=== PATIENT | male | born 1955 | race Caucasian/White ===

== ENCOUNTER 2023-04-04 14:40 | Emergency (ER) | payer OTHER, SELFPAY ==
[2023-04-04 14:53] VITALS: BP 174/93; PULSE 85; RESP 19; TEMP 36.6; O2SAT 94; BMI 39.7
[2023-04-04 17:41] LABS: Influenza A PCR POSITIVE (Negative); Influenza B PCR NEGATIVE (Negative); Resp Syncy Virus RNA Qual PCR NEGATIVE (Negative); SARS COV2 PCR INHOUSE NEGATIVE (Negative)
--- NOTE | 2023-04-04 18:22 | ED.URI ---
HPI - URI/Sore Throat General Chief Complaint: Upper Respiratory Symptoms Stated Complaint: Sinus infection Time Seen by Provider: 04/04/23 18:21 Source: patient, RN notes reviewed and old records reviewed Mode of arrival: ambulatory History of Present Illness HPI Narrative: 67-year-old male with no significant past medical history presenting to the ED complaining of sinus congestion, rhinorrhea, myalgias/body aches x4 days. Also reports dry cough. Admits taking the past few days off of work. Denies known fever, CP/SOB, recent travel, sick contacts, pedal edema, sore throat MD elicited complaint: cough and rhinorrhea Related Data Previous Rx's Medication Instructions Recorded oseltamivir 75 mg capsule (Tamiflu) 75 mg PO Q12H 5 days #10 caps 04/04/23 Allergies Allergy/AdvReac Type Severity Reaction Status Date / Time No Known Allergies Allergy Verified 04/04/23 14:53 [No Known Allergies*] Review of Systems Review of Systems: Constitutional: No Fever, No Chills, +fatigue ENT/Mouth: No Ear Pain, + Nasal Congestion, No Sinus Pain, No Hoarseness, No sore throat, + Rhinorrhea, No Swallowing Difficulty Cardiovascular: No Chest Pain, No SOB Respiratory: + Cough, No Sputum, No Wheezing Gastrointestinal: No Nausea, No Vomiting, No Abdominal pain Musculoskeletal: No joint pain, + Myalgias, No Joint Swelling Skin: No Skin Lesions, No rash Neuro: No Weakness Yes all other systems are reviewed and are negative Constitutional: Constitutional: Reports as per [facility] Past Medical History Attestation statement: The following information was validated with the patient. Source: old records reviewed Social History Social History Advance Directives: No Advance Directives Information Provided: No Physical Exam Vital Signs: Vital Signs: Last Vital Signs Temp 98 F 04/04/23 14:53 Pulse 85 04/04/23 14:53 Resp 19 04/04/23 14:53 BP 174/93 H 04/04/23 14:53 Pulse Ox 94 04/04/23 14:53 O2 Del Method Room Air 04/04/23 14:53 BMI result Body Mass Index 39.7 Const: General: cooperative, healthy appearing and no acute distress Orientation/consciousness: patient oriented x3 Limitations: no limitations HEENT: Head: Yes normal to inspection and Yes atraumatic Ears: hearing grossly normal bilaterally, external ears normal, TM's normal bilaterally and mastoids normal General nose exam: Normal external nose present Face and sinus: Yes normal facial exam Mouth: Normal oral and palatal mucosa present Throat: Yes posterior oropharynx normal, Yes tonsils normal, Yes uvula midline, No peritonsillar mass and No uvula laterally displaced Eyes: General: appearance normal, both eyes and all related structures EOM: EOMs intact bilaterally Neck: Neck: Yes normal visual inspection and Yes no meningeal signs Resp: Effort & Inspection: normal respiratory effort, no respiratory distress and no stridor Auscultation: clear to auscultation bilaterally, no crackles and no wheezes Cardio: Rate: regular rate Heart sounds: S1 normal heart sound present and S2 normal heart sound present GI: Inspection: Yes normal to inspection Palpation (GI): Soft to palpation, nontender, no guarding and not rigid Skin: Rashes: no rashes Wounds: no wounds Neuro: General: patient oriented x3, tone normal and no meningeal signs Cranial nerves: Yes CN's II-XII intact bilaterally Gait exam (Neuro): Normal gait present Extrem: General: Yes normal to inspection Course Course Course Narrative: -influenza a positive Results discussed with patient including worrisome signs and symptoms and strict return precautions, and when to return to the emergency department. They verbalized understanding and feel safe for discharge at this time. Medical Decision Making Medical Decision Making [facility] Narrative: 67-year-old male with no significant past medical history presenting to the ED complaining of sinus congestion, rhinorrhea, myalgias/body aches x4 days. On exam vital signs stable, NAD, nontoxic appearing, exam otherwise nonfocal. Patient requesting discharge. Concern for viral illness. Lower suspicion for pneumonia/bronchitis or ACS Plan: Viral testing Please refer to course for remaining clinical decision making, interpretation of labs/imaging results, and discussions with consultants and/or family members. Differential Diagnosis Differential Diagnoses: The differential diagnosis associated with the presentation includes As above Lab Data [facility] [place] Lab Attestation statement: I reviewed the patient's lab results. Labs: Lab Results 04/04/23 Range/Units 16:56 Influenza Type A (PCR) POSITIVE A (Negative) Influenza Type B (PCR) NEGATIVE (Negative) RSV RNA Qual (PCR) NEGATIVE (Negative) SARS-CoV-2 RNA (RT-PCR) NEGATIVE (Negative) Independent Historian Clinical information obtained from an independent historian. History obtained from or confirmed by: Other (Son) External Record Review External record reviewed: Inpatient record, Office record, Outpatient record, Prior outpatient labs, Prior outpatient radiology, Primary care record and Outside ED record Tests considered The following testing was considered but not selected: As above Discharge Plan Discharge Clinical Impression: Influenza Patient Disposition: Home, Self-Care Instructions: Influenza (DC) Additional Instructions: You have the flu ML fluids in antiviral medication, take as prescribed. No antibiotics are indicated at this time Make sure you are staying hydrated. Drink plenty of fluids. Rest Alternate Tylenol and Motrin at home as needed for body aches and fever Follow-up with your doctor. If symptoms persist or worsen return to the emergency department *If you are a child & not tolerating liquid or urinating for more than 6 hours, or fevers are uncontrolled with medications at home, return to the emergency department* Prescriptions: New oseltamivir [Tamiflu] 75 mg capsule 75 mg PO Q12H 5 Days Qty: 10 0RF Referrals: Radha Torres MD [Primary Care Provider] - Stand Alone Forms: Work/School Release
== END 2023-04-04 19:02 | disposition home or self-care (01) ==
PROVIDERS: Emergency Provider Emergency Medicine; PCP Internal Medicine
DX: J10.1 Influenza due to other identified influenza virus with other respiratory manifestations (principal); R09.81 Nasal congestion; M79.10 Myalgia, unspecified site; R05.9 Cough, unspecified; Z20.828 Contact with and (suspected) exposure to other viral communicable diseases; Z20.822 Contact with and (suspected) exposure to COVID-19
CPT/HCPCS: 0241U; 99282; 99283

== ENCOUNTER 2023-07-27 13:30 | Emergency (ER) | payer OTHER, SELFPAY ==
[2023-07-27 14:52] VITALS: BP 146/93; PULSE 75; RESP 18; TEMP 36.4; O2SAT 95; BMI 40.8
--- NOTE | 2023-07-27 14:53 | ED_ITS ---
HPI - General Adult General Chief complaint: General Medical Stated complaint: Medication refill Time Seen by Provider: 07/27/23 15:22 Source: patient and family Mode of arrival: ambulatory Limitations: no limitations History of Present Illness HPI narrative: 67-year-old male with history of hypertension, hyperlipidemia, OK, obesity who presents to the ER for medication refills. He states he went to the [facility] for medication refills, he was told they did not take his insurance needs come to the ER. He states he has 2 days left of his medications including atorvastatin, metoprolol, amlodipine, aspirin and clopidogrel. He has been taking these medications at the same dose for several years. His primary care doctor dropped him because he has not been in several years. His new PCP appointment is in September. He denies any physical symptoms including chest pain, shortness for breath, abdominal pain or headaches. MD complaint: Medication refill Related Data Previous Rx's ?Medication ?Instructions ?Recorded oseltamivir 75 mg capsule (Tamiflu) 75 mg PO Q12H 5 days #10 caps 04/04/23 amlodipine 5 mg tablet 5 mg PO DAILY #90 tabs 07/27/23 aspirin 81 mg tablet,delayed 81 mg PO DAILY #90 tabs 07/27/23 release (Adult Aspirin Regimen) atorvastatin 80 mg tablet 80 mg PO DAILY #90 tabs 07/27/23 clopidogrel 75 mg tablet (Plavix) 75 mg PO DAILY #90 tabs 07/27/23 metoprolol succinate 25 mg 25 mg PO DAILY #90 tabs 07/27/23 tablet,extended release 24 hr Allergies Allergy/AdvReac Type Severity Reaction Status Date / Time No Known Allergies Allergy Verified 07/27/23 14:56 [No Known Allergies*] Review of Systems Review of Systems: Yes all other systems are reviewed and are negative [facility] Social History Social History Advance Directives: No Advance Directives Information Provided: No Physical Exam ED Vital Signs: Vital Signs - 24 hr 07/27/23 14:52 Temperature 97.6 F Pulse Rate 75 Respiratory Rate 18 Blood Pressure 146/93 H Pulse Oximetry 95 Oxygen Delivery Method Room Air BMI result Body Mass Index 40.8 Appearance: Alert. Oriented X3. No acute distress. HEENT: normal external inspection Neck: Normal inspection. CVS: Normal heart rate and rhythm. Pulses normal. Respiratory: No respiratory distress. Breath sounds normal. Abdomen: Obese, Soft and nontender. +BS x4 Skin: Skin warm and dry. Normal skin color. Normal skin turgor. No rashes. Extremities: No lower extremity edema. No joint swelling. Neuro/psych: Oriented X 3. grossly normal, nonfocal, slow but steady gait Course Course Course Narrative: RME:?67 yo male hx of HTN, HDL here requesting refills of 5 different medications. meds includes metoprolol, admlodipine, atorvastatin, aspirin, plaxix > when asked why he is on AC, he states he does not know. Stilll has a few doses of these medications. Daughter has been trying to get him into a PCP however there is no openings until September. He has not seen his previous PCP since 2019 however continued to fill these. denies any physical complaints. basic labs, UA ordered. Full HPI, ROS and PE to be performed by the primary ED provider. Medical Decision Making Medical Decision Making MDM Narrative: 67-year-old male with a history of HTN, HLD, obesity and OK who presents to the ER for medication refills. He presents with 5 prescriptions need refilling including antihypertensives, statin and antiplatelet. He is slightly hypertensive on arrival. He has been compliant with his medication for years. His PCP appointment is in September. Spent time discussing importance of outpatient follow-up and patient expressed understanding. He has appointment in September. Refusing blood work today and will get it done in september. will send Rx for 3 month supply to his pharmacy. stable for d/c home Differential Diagnosis Differential Diagnoses: The differential diagnosis associated with the presentation includes Independent Historian Clinical information obtained from an independent historian. History obtained from or confirmed by: Other (adult daughter at bedside) External Record Review External record reviewed: Outpatient record and Prior outpatient labs Tests considered The following testing was considered but not selected: considered basic labs and urinalysis however patient refused Prescription Management I considered prescription management with: Other ( antihypertensive, antiplatelet and statin) Chronic Conditions Patient?s care impacted by: Hypertension Critical Care Time Critical Care Time Critical Care Time: No Discharge Plan Discharge Clinical Impression: Hypertension, Hyperlipidemia Patient Disposition: Home, Self-Care Instructions: Chronic Hypertension (DC) Additional Instructions: Take prescribed medications as directed. Follow-up with your primary care doctor in September as scheduled. If you develop new or worsening symptoms call 911 or come back to the ER for further evaluation. Prescriptions: New metoprolol succinate 25 mg tablet extended release 24 hr 25 mg PO DAILY Qty: 90 0RF aspirin [Adult Aspirin Regimen] 81 mg tablet,delayed release (DR/EC) 81 mg PO DAILY Qty: 90 0RF clopidogrel [Plavix] 75 mg tablet 75 mg PO DAILY Qty: 90 0RF amlodipine 5 mg tablet 5 mg PO DAILY Qty: 90 0RF atorvastatin 80 mg tablet 80 mg PO DAILY Qty: 90 0RF No Action oseltamivir [Tamiflu] 75 mg capsule 75 mg PO Q12H 5 Days Qty: 10 0RF Referrals: Radha Torres MD [Physician] - Print Language: Frisian
--- NOTE | 2023-07-27 15:32 | PC.NURSE ---
declined blood draw- anna roca aware- my blood is good, i want to go back to work.
[2023-07-27 16:57] VITALS: BP 146/93; PULSE 75; RESP 18; TEMP 36.4; O2SAT 95
== END 2023-07-27 16:00 | disposition home or self-care (01) ==
LOC: HO.ED 15:42
PROVIDERS: Emergency Provider Emergency Medicine
DX: I10 Essential (primary) hypertension (principal); E78.5 Hyperlipidemia, unspecified; I25.2 Old myocardial infarction; E66.9 Obesity, unspecified; Z76.0 Encounter for issue of repeat prescription; Z68.41 Body mass index [BMI] 40.0-44.9, adult
CPT/HCPCS: 99283; 99284

== ENCOUNTER 2024-01-06 08:02 | Outpatient (REF) | payer OTHER, SELFPAY ==
[2024-01-06 15:02] LABS: MANUAL DIFF FLAG NO
[2024-01-06 15:11] LABS: Basophils Absolute Auto 0.1 X10*3/uL (0.0-0.2); Basophils Percent Auto 0.8 % (0-2); Eosinophils Absolute Auto 0.3 X10*3/uL (0.0-0.4); Eosinophils Percent Auto 2.9 % (0-4); Hematocrit 50.8 % (42.0-52.0); Hemoglobin 17.3 g/dl (14.0-18.0); Imm Gran Abs Auto 0.04 X10*3/uL (0.00-0.03); Imm Gran Pct Auto 0.4 % (0.0-0.4); Lymphocytes Absolute Auto 2.6 X10*3/uL (1.2-4.9); Lymphocytes Percent Auto 28.1 % (20-40); Mean Corpuscular HGB Conc 34.1 g/dl (31.0-36.0); Mean Corpuscular Hemoglobin 31.1 pg (27.0-33.0); Mean Corpuscular Volume 91.2 fL (80.0-98.0); Mean Platelet Volume 9.4 fL (9.4-12.4); Monocytes Percent Auto 11.2 % (2-11); Neutrophils Absolute Auto 5.2 x10*3/uL (2.0-8.3); Neutrophils Percent Auto 56.6 % (45-73); Platelet Count 299 X10*3/uL (160-400); Red Blood Count 5.57 X10*6/uL (4.60-5.80); Red Cell Distribution Width 12.6 % (11.0-16.0); White Blood Count 9.1 X10*3/uL (4.8-10.8)
[2024-01-06 15:17] LABS: Appearance Urine Clear; Color Urine Dark Yellow; Glucose Urine UA Negative (Negative); Leukocyte Esterase Urine Negative (Negative); Nitrite Urine Negative (Negative); PH 7.5 (5.0-9.0); Specific Gravity - Urine 1.025 (1.005-1.025); UMIC TRIGGER UACC YES; Urine Blood Negative (Negative); Urine Ketones Negative (Negative); Urine Protein 30 (1+) mg/dL (Neg-Trace)
[2024-01-06 15:22] LABS: Bacteria Urine None Seen (None Seen); Hyaline Casts Urine 0-2 /LPF (0-2); RBC Urine 0-2 /HPF (0-2); Squamous Epithelial Cell Urine 0-2 /HPF (0-2); WBC Urine 0-5 /HPF (0-5)
[2024-01-06 16:18] LABS: Alanine Aminotransferase 56 U/L (0-40); Albumin Level 4.4 g/dL (3.5-5.0); Alkaline Phosphatase 67 U/L (39-117); Anion Gap 14 (12-20); Aspartate Amino Transferase 41 U/L (5-37); Bilirubin Total 0.8 mg/dL (0.0-1.0); Blood Urea Nitrogen 17 mg/dL (9-16); Calcium 9.8 mg/dL (8.4-10.2); Carbon Dioxide 28 mmol/L (22-29); Chloride 103 mmol/L (96-108); Cholesterol 126 mg/dL (<200); Estimated Glomerular Filt Rate > 60; Glucose Random 81 mg/dL (60-115); HDL Cholesterol 33 mg/dL (>40); LDL Cholesterol Calculated 52 mg/dL (<100); Potassium 4.2 mmol/L (3.3-5.1); Sodium 141 mmol/L (135-145); Total Protein 7.6 g/dL (6.5-8.0); Triglycerides 206 mg/dL (<150)
[2024-01-06 16:25] LABS: TSH reflex Free T4 1.07 uIU/mL (0.32-4.0)
== END 2024-01-06 08:03 | disposition home or self-care (01) ==
LOC: HO.CHCLDS 08:02
PROVIDERS: Visit Provider Family Medicine
DX: E66.01 Morbid (severe) obesity due to excess calories (principal); I10 Essential (primary) hypertension; I21.4 Non-ST elevation (NSTEMI) myocardial infarction; Z68.41 Body mass index [BMI] 40.0-44.9, adult
CPT/HCPCS: 36415; 80053; 80061; 81001; 84443; 85025

== ENCOUNTER 2024-11-24 09:33 | Outpatient (REF) | payer OTHER, SELFPAY ==
--- OUTSIDE RECORDS SUMMARY | 2024-11-24 09:36 | XMS_ITS | Clinical Summary ---
Author Organization [employer] Address [address] [place] [address] Care Team Providers Care Hardboard Panel Printer Name Role Phone Yissel Landin MD Primary Care Provider [phone] Allergies No known active allergies Medications Blood Pressure kit 1 Units Once per day. 1 kit 10/07/19 24 Active Aspirin Adult Low Strength 81 MG EC tabletIndication s:Non-ST elevation (NSTEMI) myocardial infarction (CMS/HCC) TAKE ONE TABLET EVERY DAY 90 tablet 10/20/19 25 Active naproxen (Naprosyn) 500 MG tablet Take 1 tablet (500 mg) by mouth if needed in the morning and at bedtime for moderate pain. 60 tablet 11/25/19 25 Active amLODIPine (Norvasc) 10 MG tablet Take 1 tablet (10 mg) by mouth Once per day. 90 tablet 1 11/25/19 25 Active atorvastatin (Lipitor) 80 MG tabletIndication s:Non-ST elevation (NSTEMI) myocardial infarction (CMS/HCC),Essent ial (primary) hypertension Take 1 tablet (80 mg) by mouth Once per day. 90 tablet 1 11/25/19 25 Active metoprolol succinate XL (Toprol-XL) 25 MG 24 hr tabletIndication s:Non-ST elevation (NSTEMI) myocardial infarction (CMS/HCC) Take 1 tablet (25 mg) by mouth Once per day. Do not crush or chew. 90 tablet 1 11/25/19 25 Active metoprolol succinate XL (Toprol-XL) 25 MG 24 hr tabletIndication s:Non-ST elevation (NSTEMI) myocardial infarction (CMS/HCC) TAKE ONE TABLET EVERY DAY. DO NOT BREAK, CRUSH, DISSOLVE OR CHEW 90 tablet 07/07/06 24 025 Discontinued(Re order (will not trigger notification to Pharmacy)) amLODIPine (Norvasc) 5 MG tabletIndication s:Essential (primary) hypertension TAKE ONE TABLET EVERY DAY 90 tablet 10/20/19 25 025 Discontinued(Th erapy completed) atorvastatin (Lipitor) 80 MG tabletIndication s:Non-ST elevation (NSTEMI) myocardial infarction (CMS/HCC),Essent ial (primary) hypertension TAKE ONE TABLET EVERY DAY 90 tablet 10/20/19 025 Discontinued(Re order (will not trigger notification to Pharmacy)) Active Problems Problem Noted Date Diagnosed Date Non-ST elevation (NSTEMI) myocardial infarction 10/07/2023 Assessment & Plan (10/07/2023 2:21 PM EDT): Pt has not seen his pairer substandard and doesn't wish to f/u with one. Essential (primary) hypertension 10/07/2023 Assessment & Plan (01/14/2024 3:48 PM EDT): Pts BP was re-taken at visit and it was normal. Advised pt to keep a log of BP readings and to bring them to the next f/u visit in 6 months Assessment & Plan (10/07/2023 1:49 PM EDT): Pt's BP was 144/84 at the time of the visit. - BP kit was ordered. -Advised pt to keep a log of BP readings and to bring them to the next f/u visit in 4 months Hyperlipidemia 10/05/2023 Hypertension 10/05/2023 Influenza 10/05/2023 Encounters Date Type Department Care Team Description 11/24/2024 9:00 AM EDT Office Visit [facility] [address] [place] [address] Yissel Landin MD Resistant hypertension (Primary Dx); Non-ST elevation (NSTEMI) myocardial infarction (CMS/HCC); Essential (primary) hypertension; Encounter for health-related screening 11/24/2024 Travel 11/21/2024 Telephone [facility] [address] [place] [address] Yissel Landin MD CHART PREP 10/30/2024 Telephone [facility] [address] [place] [address] Yissel Landin MD Med Refill 10/19/2024 Telephone [facility] [address] [place] [address] Yissel Landin MD Transition Of Care (Tcm) 10/19/2024 Telephone [facility] [address] [place] [address] Yissel Landin MD 10/19/2024 Refill [facility] [address] [place] [address] Yissel Landin MD Non-ST elevation (NSTEMI) myocardial infarction (CMS/HCC); Essential (primary) hypertension from Last 3 Months Immunizations Immunization Administration Dates Next Due Pneumococcal Conjugate PCV 20 10/07/2023 Tdap 10/07/2023 Family History Medical History Relation Name Comments CKD Son Relation Name Status Comments Son Social History Tobacco Use Types Packs/Day Years Used Date Smoking Tobacco: Every Day Cigarettes 2 51.6 Started: 04/19/1973 Tobacco Cessation:Ready to Q uit: Not Asked; Counseling Given: Not Answered Alcohol Use Standard Drinks/Week Comments Yes 0 (1 standard drink = 0.6 oz pur e alcohol) Depression Answer Date Recorded Patient Health Questionnaire-9 Score 1 11/24/2024 Patient Health Questionnaire-9 Score 1 11/24/2024 Last PHQ-9: Questionnaire Data Not on file 0 11/24/2024 Housing Stability Answer Date Recorded What is your housing situation today? I have mila milan 11/24/[address] you li ve. Do you have problems with any of the following? None of the above 11/24/2024 Food Insecurity Answer Date Recorded Within the past 12 months, y ou worried that your food would run out before you got money to buy more: Never True 11/24/2024 Within the past 12 months,th e food you bought just didn't last and you didn't have enough money to get more: Never True 11/2024 Transportation Answer Date Recorded In the past 12 months, has l ack of transportation kept you from medical appts, meetings, work or from getting things needed for daily living? No 11/24/2024 Utilities Answer Date Recorded In the past 12 months, has t he electric, gas, oil or water company threatened to shut off services in your home? 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 on file Not on file Last Filed Vital Signs Vital Sign Reading Time Taken Comments Blood Pressure 140/86 11/24/2024 8:59 AM EDT Pulse 78 11/24/2024 8:59 AM EDT Temperature 37.1 C (98.8 F) 11/24/2024 8:59 AM EDT Respiratory Rate 18 11/24/2024 8:59 AM EDT Oxygen Saturation 97% 11/24/2024 8:59 AM EDT Inhaled Oxygen Concentration - - Weight 131 kg (289 lb 6.4 oz) 11/24/2024 8:59 AM EDT Height 177.8 cm (5' 10 ) 11/24/2024 8:59 AM EDT Body Mass Index 41.52 11/24/2024 8:59 AM EDT Plan of Treatment Health Maintenance Due Date Last Done Comments CT Colonography 1953 Colonoscopy 1953 FIT DNA/Cologuard 1953 FIT 1953 FOBT 1955 Sigmoidoscopy 1955 Hepatitis C Screening 12/23/1971 RSV Patients and Patients Aged 60 years or older (1 - Risk 60-74 years 1-dose series) 2013 COVID-19 Vaccine ( season) 2023 10/13/2021, 04/24/2021, 08/19/2020, Additional history exists Influenza Vaccine (#1) 2024 Alcohol/Substance Use Screening 11/24/2025 11/24/2024 Colorectal Cancer Screening 11/24/2025 Postponed from 1955 (Patient Refused) Depression Screening 11/24/2025 11/24/2024, 11/25/19 Lung Cancer Screening 11/24/2025 Postpo asia from 12/23/2003 (Patient Refused) SDOH Screening 11/24/2025 11/24/2024 Tobacco Screening 11/24/2025 11/24/2024 Zoster Vaccines (1 of 2) 11/24/2025 Pos tponed from 12/23/2003 (Patient Refused) Lipid Panel 01/05/2029 01/06/2024 DTaP/Tdap/Td Vaccines (2 - Td or Tdap) 10/06/2033 10/07/2023 Pneumococcal Vaccine: 50+ Years Completed 10/07/2023 HIB Vaccines Aged Out No longer eligi ble based on patient's age to complete this topic HPV Vaccines Aged Out No longer eligi ble based on patient's age to complete this topic Hepatitis A Vaccines Aged Out No long er eligible based on patient's age to complete this topic Hepatitis B Vaccines Aged Out No long er eligible based on patient's age to complete this topic IPV Vaccines Aged Out No longer eligi ble based on patient's age to complete this topic Meningococcal B Vaccine Aged Out No l onger eligible based on patient's age to complete this topic Meningococcal Vaccine Aged Out No long segundo eligible based on patient's age to complete this topic RSV under 20 months Aged Out No longe r eligible based on patient's age to complete this topic Rotavirus Vaccines Aged Out No longer eligible based on patient's age to complete this topic Procedures Procedure Name Priority Date/Time Associated Diagnosis Comments LIPID PANEL, STANDARD Routine 01/06/2024 8:04 AM EDT Class 3 severe obesity with serious comorbidity and body mass index (BMI) of 40.0 to 44.9 in adult, unspecified obesity type (CMS/HCC) from Last 3 Months or Most Recently Relevant to Health Maintenance Results * (ABNORMAL) Lipid Panel, Standard (01/06/2024 8:04 AM EDT) Triglycerides 206(H) <150 mg/dL [facility] Comment:Desirable Triglyceri de: less than 150 mg/dLBorderline High Triglyceride 150-199 mg/dLHigh Triglyceride: 200-499 mg/dLVery High Triglyceride: greater than or equal to 5OO mg/dL Cholesterol 126 <200 mg/dL [facility] Comment:Desirable Cholestero l: less than 200 mg/dLBorderline High Cholesterol: 200-239 mg/dLHigh Cholesterol: greater than 239 mg/dL LDL Cholesterol Calculated 52 <100 mg/dL [facility] Comment:Desirable LDL: less than 100 mg/dLNear Optimal/Above Optimal LDL: 110- 129 mg/dLBorderline High LDL: 130-159 mg/dLHigh LDL: 160-189 mg/dLVery High LDL: greater than or equal to 190 mg/dL HDL Cholesterol 33(L) >40 mg/dL [facility] Comment:Desirable HDL: great er than 40 mg/dL Note: This HDL assay may give artificially low results in patients with liver disease. Blood Venous blood specimen / Unknown 01/06/2024 8:04 AM EDT 01/06/2024 2:56 PM EDT us Yissel Landin MD LAB BLOOD ORDERABLES Final Re sult [facility] [address] [place] [phone] from Last 3 Months or Most Recently Relevant to Health Maintenance Insurance [facility] , [address] [place] [address] [address] Care Teams Hardboard Panel Printer Relationship Specialty Start Date End Date Yissel Landin MD [address] [place] [id number] PCP - General Family Medicine 10/07/23
[2024-11-24 14:46] LABS: Appearance Urine Clear; Glucose Urine UA Negative (Negative); PH 7.0 (5.0-9.0); Specific Gravity - Urine 1.015 (1.005-1.025)
[2024-11-24 15:00] LABS: MANUAL DIFF FLAG NO
[2024-11-24 15:07] LABS: Hematocrit 48.6 % (42.0-52.0); Hemoglobin 16.4 g/dl (14.0-18.0); Imm Gran Abs Auto 0.04 X10*3/uL (0.00-0.03); Imm Gran Pct Auto 0.4 % (0.0-0.4); Lymphocytes Absolute Auto 2.0 X10*3/uL (1.2-4.9); Mean Corpuscular HGB Conc 33.7 g/dl (31.0-36.0); Mean Corpuscular Hemoglobin 30.6 pg (27.0-33.0); Mean Corpuscular Volume 90.7 fL (80.0-98.0); NRBC Abs Auto 0.000 X10*3/uL (0.0-0.012); NRBC Pct Auto 0.0 /100WBC (0.0-0.2); Platelet Count 284 X10*3/uL (160-400); Red Blood Count 5.36 X10*6/uL (4.60-5.80); White Blood Count 9.5 X10*3/uL (4.8-10.8)
[2024-11-24 15:39] LABS: Alanine Aminotransferase 57 U/L (0-40); Albumin Level 4.6 g/dL (3.5-5.0); Alkaline Phosphatase 79 U/L (39-117); Anion Gap 12 (12-20); Aspartate Amino Transferase 54 U/L (5-37); Blood Urea Nitrogen 11 mg/dL (9-16); Calcium 9.3 mg/dL (8.4-10.2); Carbon Dioxide 25 mmol/L (22-29); Chloride 107 mmol/L (96-108); Cholesterol 113 mg/dL (<200); Estimated Glomerular Filt Rate > 60; HDL Cholesterol 33 mg/dL (>40); Potassium 4.0 mmol/L (3.3-5.1); Sodium 140 mmol/L (135-145); Total Protein 7.2 g/dL (6.5-8.0); Triglycerides 150 mg/dL (<150)
[2024-11-27 08:44] LABS: ~HepC Num1 0.16 S/CO (0.00-0.79); ~Hepatitis C Antibody Nonreactive (Nonreactive)
== END 2024-11-24 09:34 | disposition home or self-care (01) ==
LOC: HO.CHCLDS 09:33
PROVIDERS: Visit Provider Family Medicine
DX: Z11.59 Encounter for screening for other viral diseases (principal); Z13.89 Encounter for screening for other disorder; I1A.0 Resistant hypertension
CPT/HCPCS: 36415; 80053; 80061; 81003; 85025; 86803

== ENCOUNTER 2025-02-06 07:42 | Outpatient (REF) | payer OTHER, SELFPAY ==
--- NOTE | ~2025-02-06 | US_ITS ---
EXAMINATION: US COMPLETE ABDOMEN WITH LIVER ELASTOGRAPHY CLINICAL INFORMATION: Mild transaminitis COMPARISON: None available. TECHNIQUE: Real-time imaging of the abdominal viscera. Noninvasive ultrasound liver fibrosis assessment is performed using Analia ElastPQ point quantification shear wave elastography (pSWE) with a C5-2 MHz transducer. Multiple elastography samples are obtained. FINDINGS: PANCREAS: Not well-visualized due to overlying bowel gas. ABDOMINAL AORTA: Not well-visualized due to bowel gas. INFERIOR VENA CAVA: Visualized portions are normal. LIVER: The liver demonstrates normal size, contour and echogenicity. No focal lesion or intrahepatic biliary duct dilatation. The right lobe measures 18.1 cm in length. The left lobe measures 8.7 cm in length. Portal flow is normal/hepatopedal Shear wave liver elastography median stiffness is 1.27 m/s (reference: normal median stiffness is 1.3 m/s or less). IQR/median stiffness to assess sampling precision is 0.13 (reference: good quality data set is IQR/median stiffness of 0.15 or less). GALLBLADDER: The gallbladder is physiologically distended. Question small gallbladder wall polyp measuring 3 x 4 x 3 mm versus sludge. No gallstones. No gallbladder wall thickening or edema. The patient is not tender over the gallbladder. COMMON BILE DUCT: Not well-visualized. The visualized common bile duct is upper normal caliber measuring 0.8 cm in diameter. RIGHT KIDNEY: Nephrectomy LEFT KIDNEY: No hydronephrosis. No renal calculi. Small 1.5 x 1.1 x 0.8 cm cyst exophytic to the lateral midpole. Compensatory hypertrophy of the left kidney. The kidney measures 16 cm in maximum dimension. SPLEEN: Unremarkable. The spleen measures 10.6 cm in maximum dimension. FREE FLUID: None seen. US/US abdomen comp w elastography IMPRESSION: 1. Impression: Normal liver. Question small polyp versus sludge in the gallbladder. Upper normal size common bile duct. Limited visualization of the pancreas and aorta. Absent right kidney. Compensatory hypertrophy of the left kidney and small left renal cyst. 2. Liver elastography: Normal liver stiffness. REFERENCE: Society of Radiologists in Ultrasound Liver Stiffness Thresholds (2020): LIVER STIFFNESS THRESHOLDS: *Liver Stiffness equal or less than 1.3 m/s: High probability of being normal. *Liver Stiffness less than 1.7 m/s: In the absence of other known clinical signs, rules out compensated advanced chronic liver disease. *Liver Stiffness 1.7-2.1 m/s: Suggestive of compensated advanced chronic liver disease but need further test for confirmation. *Liver Stiffness over 2.1 m/s: Rules in compensated advanced chronic liver disease. *Liver Stiffness over 2.4 m/s: Suggestive of clinically significant portal hypertension. QUALITY OF DATA SET: *IQR/Median value equal or less than 0.15 implies a quality data set. *IQR/Median value over 0.15 implies a poor quality data set. SIGNIFICANT CHANGE FROM PRIOR EXAM: Significant change if liver stiffness measurement is 10% or greater from prior exam. OTHER CONSIDERATIONS: The stage of liver fibrosis may be overestimated in the setting of acute hepatitis, liver inflammation, elevated liver function tests, hepatic vascular congestion, obstructive cholestasis, non-fasting state, and infiltrative diseases such as amyloidosis and lymphoma. In some patients with NAFLD, the liver stiffness thresholds for compensated advanced chronic liver disease may be lower. In causes other than viral hepatitis and NAFLD, liver stiffness thresholds are not well established. Electronically signed by: Camila Harper MD 02/06/2025 09:52 AM EDT
--- OUTSIDE RECORDS SUMMARY | 2025-02-06 07:44 | XMS_ITS | Encounter Summary ---
Author Organization [employer] Address [address] [facility] [address] [place] [address] Care Team Providers Care Market Editor Name Role Phone Yissel Landin MD Primary Care Provider [phone] Reason for Visit * Reason Comments Med Refill Encounter Details Date Type Department Care Team ([facility] st Contact Info) Description 02/05/2025 Refill [facility] [address] [place], [place] [phone] Yissel Landin MD [address] [place] [address] Non-ST elevation (NSTEMI) myocardial infarction (HCC) Social History Tobacco Use Types Packs/Day Years Used Date Smoking Tobacco: Every Day Cigarettes 2 51.8 Started: 04/19/1973 Alcohol Use Standard Drinks/Week Comments Yes 0 [...] 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 documented in this encounter Plan of Treatment Upcoming Encounters Date Type Department Care Team (Late st Contact Info) Description 03/02/2025 10:30 AM EST Office Visit [facility] [address] [place] [address] Yissel Landin MD [address] [place] [address] documented as of this encounter Visit Diagnoses Diagnosis Non-ST elevation (NSTEMI) myocardial infarction (HCC) documented in this encounter Additional Health Concerns Assessment Noted Time PHQ-9 Depression Total Score: 1 11/25/19 9:03 AM EDT documented as of this encounter Care Teams Market Editor Relationship Specialty Start Date End Date Yissel Landin MD [address] [place] [address] PCP - General Family Medicine 10/07/23 documented as of this encounter
--- OUTSIDE RECORDS SUMMARY | 2025-02-06 07:44 | XMS_ITS | Encounter Summary ---
Author Organization [employer] Address 75 [facility] 7 [place] [address] Care Team Providers Care Price Changer Name Role Phone Radha Torres MD Primary Care Provider [phone] Yissel Landin MD Primary Care Provider [phone] Reason for Visit * Reason Comments Med Refill Encounter Details Date Type Department Care Team (Late st Contact Info) Description 01/20/2023 Refill [facility] [address] [place], [place] [phone] Radha Torres MD [address] [place], [place] [phone] Non-ST elevation (NSTEMI) myocardial infarction (CMS/HCC); Essential (primary) hypertension Social History Tobacco Use Types Packs/Day Years Used Date Smoking Tobacco: Never Assessed Sex and Gender Information Value Date Recorded Sex Assigned at Male 02/16/2022 10:34 AM EDT Legal Sex Male 10:34 AM EDT Gender Identity Male 10/07/2023 12:55 PM EDT Sexual Orientation Straight 10/07/2023 12 :55 PM EDT documented as of this encounter Plan of Treatment Upcoming Encounters Date Type Department Care Team (Late st Contact Info) Description 03/02/2025 10:30 AM EST Office Visit [facility] MED & PEDS [address] [place], [place] [phone] Yissel Landin MD [address] [place], [place] [phone] documented as of this encounter Visit Diagnoses Diagnosis Non-ST elevation (NSTEMI) myocardial infarction (HCC) Essential (primary) hypertension Unspecified essential hypertension documented in this encounter Care Teams Price Changer Relationship Specialty Start Date End Date Radha Torres MD [address] [place] [phone] PCP - General Internal Medicine 09/28/17 06/23/23 Yissel Landin MD [address] [place] [phone] PCP - General Family Medicine 10/07/23 documented as of this encounter
--- OUTSIDE RECORDS SUMMARY | 2025-02-06 07:44 | XMS_ITS | Encounter Summary ---
Author Organization [employer] Address 75 [facility] 7t [place] [address] Care Team Providers Care Plasterer Rough Name Role Phone Yissel Landin MD Primary Care Provider [phone] Reason for Visit * Reason Comments Med Refill Encounter Details Date Type Department Care Team (Late Contact Info) Description 07/20/2023 Refill [facility] MED & PEDS [address] [place] [address] Yissel Landin MD [address] [place], [place] [phone] Non-ST elevation (NSTEMI) myocardial infarction (CMS/HCC); Essential [...] Description 03/02/2025 10:30 AM EST Office Visit [facility] MED & PEDS [address] [place], [place] [phone] Yissel Landin MD [address] [place], [place] [phone] documented as of this encounter Visit Diagnoses Diagnosis Non-ST elevation (NSTEMI) myocardial infarction (HCC) Essential (primary) hypertension Unspecified essential hypertension documented in this encounter Care Teams Plasterer Rough Relationship Specialty Start Date End Date Yissel Landin MD [address] [place] [address] PCP - General Family Medicine 10/07/23 documented as of this encounter
--- OUTSIDE RECORDS SUMMARY | 2025-02-06 07:44 | XMS_ITS | Clinical Summary ---
Author Organization [employer] Address 75 [facility] [address]t [place] [address] Care Team Providers Care Hog Tender Name Role Phone Yissel Landin MD Primary Care Provider [phone] Allergies No known active allergies Medications Blood Pressure kit 1 Units Once per day. 1 kit 4 Active Aspirin Adult Low Strength 81 MG EC tabletIndications :Non-ST elevation (NSTEMI) myocardial infarction (HCC) TAKE ONE TABLET EVERY DAY 90 tablet 5 Active naproxen (Naprosyn) 500 MG tablet Take 1 tablet (500 mg) by mouth if needed in the morning and at bedtime for moderate pain. 60 tablet 5 Active amLODIPine (Norvasc) 10 MG tablet Take 1 tablet (10 mg) by mouth Once per day. 90 tablet 1 5 Active atorvastatin (Lipitor) 80 MG tabletIndications :Non-ST elevation (NSTEMI) myocardial infarction (HCC),Essential (primary) hypertension Take 1 tablet (80 mg) by mouth Once per day. 90 tablet 1 5 Active metoprolol succinate XL (Toprol-XL) 25 MG 24 hr tabletIndications :Non-ST elevation (NSTEMI) myocardial infarction (HCC) Take 1 tablet (25 mg) by mouth Once per day. Do not crush or chew. 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 [...] in 4 months Hyperlipidemia 10/05/2023 Hypertension 10/05/2023 Assessment & Plan (12/06/2024 9:01 AM EDT): Patient's blood pressure is elevated but not critically high. Current medication regimen is insufficient to control blood pressure adequately. 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 - Reassess in 3 months Influenza 10/05/2023 Encounters Date Type Department Care Team Description 02/05/2025 Telephone [facility] MED & PEDS [address] [place] [address] Yissel Landin MD Med Refill 02/05/2025 Refill [facility] PED[facility] [address] [place] [address] Yissel Landin MD Non-ST elevation (NSTEMI) myocardial infarction (HCC) 12/06/2024 Results Follow-Up [facility] MED & PEDS [address] [place] [address] Yissel Landin MD CBC auto differential, Comprehensive Metabolic Panel, Lipid Panel, Standard, Additional followed-up results: 2 11/24/2024 9:00 AM EDT Office Visit [facility] MED & PEDS [address] [place] [address] Yissel Landin MD Resistant hypertension (Primary Dx); Non-ST elevation (NSTEMI) myocardial infarction (CMS/HCC); Essential (primary) hypertension; Encounter for health-related screening 11/24/2024 Travel 11/21/2024 Telephone 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 MED & PEDS [address] [place] [address] Yissel Landin MD [address] [place] [address] Health Maintenance Due Date Last Done Comments CT Colonography 1953 Colonoscopy 1953 FIT DNA/Cologuard 1953 FIT 1953 FOBT 1953 Sigmoidoscopy 1953 RSV Patients and Patients Aged 60 years or older (1 - Risk 60-74 years 1-dose series) 2013 COVID-19 Vaccine ( season) 2024 10/13/2021, 04/24/2021, 08/19/2020, Additional history exists Influenza Vaccine (#1) 2024 Alcohol/Substance Use Screening 11/24/2025 11/24/2024 Colorectal Cancer Screening 11/24/2025 Postponed from 1955 (Patient Refused) Depression Screening 11/24/2025 11/24/2024, 11/25/19 Lung Cancer Screening 11/24/2025 Postpo asia from 12/23/2003 (Patient Refused) SDOH Screening 11/24/2025 11/24/2024 Zoster Vaccines (1 of 2) 11/24/2025 Pos tponed from 12/23/2003 (Patient Refused) Tobacco Screening 12/06/2025 12/06/2024 Lipid Panel 11/24/2029 11/24/2024, 01/06/2024 DTaP/Tdap/Td Vaccines (2 - Td or Tdap) 10/06/2033 10/07/2023 Pneumococcal Vaccine: 50+ Years Completed 10/07/2023 Hepatitis C Screening Completed 11/24/2024 HIB Vaccines Aged Out No longer eligi [...] Procedure Name Priority Date/Time Associated Diagnosis Comments URINALYSIS WITH REFLEX MICROSCOPIC Routine 11/24/2024 9:40 AM EDT Resistant hypertension HEPATITIS C AB W/REFL TO HCV RNA, QN, PCR Routine 11/24/2024 9:35 AM EDT Encounter for health-related screening LIPID PANEL, STANDARD Routine 11/24/2024 9:35 AM EDT Resistant hypertension COMPREHENSIVE METABOLIC PANEL Routine 11/24/2024 9:35 AM EDT Resistant hypertension CBC WITH AUTO DIFFERENTIAL Routine 11/24/2024 9:35 AM EDT Resistant hypertension from Last 3 Months Results * Urinalysis with reflex microscopic (11/24/2024 9:40 AM EDT) Color Urine Yellow [facility] Appearance Urine Clear [facility] PH 7.0 5.0 - 9.0 [facility] Glucose Urine UA Negative Negative mg/dL [facility] Urine Blood Negative Negative [facility] Specific [place] - Urine 1.015 1.005 - 1.025 [facility] Urine Protein Trace Neg-Trace mg/dL [facility] Urine Ketones Negative Negative mg/dL [facility] Nitrite Urine Negative Negative [facility] Leukocyte Esterase Urine Negative Negative [facility] Urine (Urine, Random) 11/24/2024 9:40 AM EDT 11/24/2024 2:33 PM EDT Narrative [facility] - 11/24/2024 2:49 PM EDT [id number], Clean Catch us Yissel Landin MD LAB URINE ORDERABLES Final Re sult [facility] [address] [place] [phone] * (ABNORMAL) CBC auto differential (11/24/2024 9:35 AM EDT) White Blood Count 9.5 4.8 - 10.8 X10*3/uL [facility] Red Blood Count 5.36 4.60 - 5.80 X10*6/uL [facility] Hemoglobin 16.4 14.0 - 18.0 g/dl [facility] Hematocrit 48.6 42.0 - 52.0 % [facility] Mean Corpuscular Volume 90.7 80.0 - 98.0 fL [facility] Mean Corpuscular Hemoglobin 30.6 27.0 - 33.0 pg [facility] Mean Corpuscular HGB Conc 33.7 31.0 - 36.0 g/dl [facility] Red Cell Distribution Width 12.6 11.0 - 16.0 % [facility] Platelet Count 284 160 - 400 X10*3/uL [facility] Mean Platelet Volume 9.3(L) 9.4 - 12.4 fL [facility] Neutrophils Percent Auto 66.8 45 - 73 % [facility] Imm Gran Pct Auto 0.4 0.0 - 0.4 % [facility] Lymphocytes Percent Auto 21.4 20 - 40 % [facility] Monocytes Percent Auto 8.3 2 - 11 % [facility] Eosinophils Percent Auto 2.3 0 - 4 % [facility] Basophils Percent Auto 0.8 0 - 2 % [facility] NRBC Pct Auto 0.0 0.0 - 0.2 /100WBC [facility] Neutrophils Absolute Auto 6.3 2.0 - 8.3 x10*3/uL [facility] Imm Gran Abs Auto 0.04(H) 0.00 - 0.03 X10*3/uL [facility] Lymphocytes Absolute Auto 2.0 1.2 - 4.9 X10*3/uL [facility] Monocytes Absolute Auto 0.8 0.1 - 1.2 X10*3/uL [facility] Eosinophils Absolute Auto 0.2 0.0 - 0.4 X10*3/uL [facility] Basophils Absolute Auto 0.1 0.0 - 0.2 X10*3/uL [facility] NRBC Abs Auto 0.000 0.0 - 0.012 X10*3/uL [facility] Blood Venous blood specimen / Unknown 11/24/2024 9:35 AM EDT 11/24/2024 2:55 PM EDT us Yissel Landin MD LAB BLOOD ORDERABLES Final Re sult [facility] [address] [place], [place] [phone] * Hepatitis C Antibody with Reflex to HCV, RNA, Quantitative, Real-Time PCR (11/24/2024 9:35 AM EDT) Hepatitis C Antibody Nonreactive Nonreactive [facility] Comment:Antibodies to HCV no t detected; does not exclude early acuteHCV infection. Blood Venous blood specimen / Unknown 11/24/2024 9:35 AM EDT 11/24/2024 2:46 PM EDT Yissel Landin MD LAB BLOOD ORDERABLES Final Re sult Performing Organization Address City/[facility]/ZIP Co de Phone Number [facility] [address] [place] [phone] * (ABNORMAL) Lipid Panel, Standard (11/24/2024 9:35 AM EDT) Triglycerides 150(H) <150 mg/dL [facility] Comment:Desirable Triglyceri de: less than 150 mg/dLBorderline High Triglyceride 150-199 mg/dLHigh Triglyceride: 200-499 mg/dLVery High Triglyceride: greater than or equal to 5OO mg/dL Cholesterol 113 <200 mg/dL [facility] Comment:Desirable Cholestero l: less than 200 mg/dLBorderline High Cholesterol: 200-239 mg/dLHigh Cholesterol: greater than 239 mg/dL LDL Cholesterol Calculated 50 <100 mg/dL [facility] Comment:Desirable LDL: less than 100 mg/dLNear Optimal/Above Optimal LDL: 110- 129 mg/dLBorderline High LDL: 130-159 mg/dLHigh LDL: 160-189 mg/dLVery High LDL: greater than or equal to 190 mg/dL HDL Cholesterol 33(L) >40 mg/dL [facility] Comment:Desirable HDL: great er than 40 mg/dL Note: This HDL assay may give artificially low results in patients with liver disease. Blood Venous blood specimen / Unknown 11/24/2024 9:35 AM EDT 11/24/2024 2:46 PM EDT Yissel Landin MD LAB BLOOD ORDERABLES Final Re sult [facility] [address] [place] [phone] * (ABNORMAL) Comprehensive Metabolic Panel (11/24/2024 9:35 AM EDT) Sodium 140 135 - 145 mmol/L [facility] Potassium 4.0 3.3 - 5.1 mmol/L [facility] Chloride 107 96 - 108 mmol/L [facility] Carbon Dioxide 25 22 - 29 mmol/L [facility] Anion Gap 12 12 - 20 [facility] Urea Nitrogen (BUN) 11 9 - 16 mg/dL [facility] Creatinine, Serum 0.89 0.5 - 1.4 mg/dL [facility] Estimated Glomerular Filt Rate >60 [facility] Comment:Chronic Kidney Disea se: Estimated GFR < 60 mL/min/1.72u4Huxelb Kidney Disease: Estimated GFR < 15 mL/min/1.73m2 Glucose 95 60 - 115 mg/dL [facility] Calcium 9.3 8.4 - 10.2 mg/dL [facility] Bilirubin, Total 0.5 0.0 - 1.0 mg/dL [facility] Aspartate Amino Transferase 54(H) 5 - 37 U/L [facility] Alanine Aminotransferase 57(H) 0 - 40 U/L [facility] Total Protein 7.2 6.5 - 8.0 g/dL [facility] Albumin Level 4.6 3.5 - 5.0 g/dL [facility] Alkaline Phosphatase 79 39 - 117 U/L [facility] Blood Venous blood specimen / Unknown 11/24/2024 9:35 AM EDT 11/24/2024 2:46 PM EDT us Yissel Landin MD LAB BLOOD ORDERABLES Final Re sult Performing Organization Address [facility]/ZIP Co de Phone Number [facility] [address] [place] [phone] from Last 3 Months Insurance [phone] [place] [address] [address] [address] [address] [address] [address] [address] Care Teams Hog Tender Relationship Specialty Start Date End Date Yissel Landin MD [address] [place] [phone] PCP - General Family Medicine 10/07/23
--- OUTSIDE RECORDS SUMMARY | 2025-02-06 07:44 | XMS_ITS | Encounter Summary ---
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 * Telephone Encounter - [place] - 02/05/2025 1:14 PM EDT Aspirin Adult Low Strength 81 MG EC tablet documented in this encounter Plan of Treatment Upcoming Encounters Date Type Department Care Team (Late st Contact Info) Description 03/02/2025 10:30 AM EST Office Visit [facility] MED & PEDS [address] [place] [address] Yissel Landin MD [address] [place] [address] documented as of this encounter Visit Diagnoses Not on filedocumented in this encounter Additional Health Concerns Assessment Noted Time PHQ-9 Depression Total Score: 1 11/25/19 25 9:03 AM EDT documented as of this encounter Care Teams Tin Dipper Relationship Specialty Start Date End Date Yissel Landin MD [address] [place] [address] PCP - General Family Medicine 10/07/23 documented as of this encounter
== END 2025-02-06 07:43 | disposition home or self-care (01) ==
LOC: HO.US 07:42
PROVIDERS: PCP Family Medicine; Visit Provider Family Medicine
DX: R74.01 Elevation of levels of liver transaminase levels (principal)
CPT/HCPCS: 76700; 76981

== ENCOUNTER → 2025-02-06 07:42 | Outpatient (BNV) | payer OTHER, SELFPAY | PROVIDERS: PCP Family Medicine; Visit Provider Radiology Diagnostic Radiology | DX: R74.01 Elevation of levels of liver transaminase levels (principal); N28.81 Hypertrophy of kidney; N28.1 Cyst of kidney, acquired | CPT/HCPCS: 76700 ==